=== PATIENT | male | born 1995 | race Caucasian/White ===

== ENCOUNTER 2019-04-26 18:12 | Day surgery (SDC) | payer MEDICAID, SELFPAY ==
[2019-04-26] VITALS (8 sets, daily range): BP systolic 114–158; BP diastolic 66–94; PULSE 78–106; RESP 16–20; TEMP 36.6–37.4; O2SAT 95–100; BMI 46.6
--- NOTE | 2019-04-26 18:46 | XR_ITS ---
WS: [id number] XR pelvis 1-2V* 90229 REASON FOR EXAM: fb in penis ? FINDINGS: The foreign body deformities in the region of the penis seen on February 20, 2018 were not observed today. The ilium, ischium, and pubis were normal. The hip joints were normal. XR/XR pelvis 1-2V* [id number] IMPRESSION: A definite foreign body is not noted today. The pelvis appear to be essentially normal.
--- NOTE | 2019-04-26 19:16 | ED_ITS ---
HPI - Skin/Abscess/Foreign Bdy General: Chief complaint: Skin/Abscess/Foreign Body Stated complaint: FB in penis Time Seen by Provider: 04/26/19 19:01 History of Present Illness: HPI narrative: Patient last night put something up inside his penis. Said it was then orange. Says that it is still in there he is able to urinate some around. Not have any pain. Patient has urinated a few times since without any difficulty. Patient with history of autism MD complaint: other (Foreign body possibly in penis) Onset (ago): day(s) (1) Associated symptoms: Deny chills or fever(s) Review of Systems Const: Denies: fever or chills : Reports: other (Possible foreign body in the urethra patient is able to urinate) PFSH ED PFSH: Social History Smoking and tobacco status: never smoked Physical Exam Const: COMMON NORMALS: no apparent distress : PENIS: normal penis and other (No foreign body visible at the meatus. Did palpate the head of the penis and shaft I did not feel any foreign body. X-ray appears negative of the pelvis for foreign body.) Course Vital Signs: Vital signs: Vital Signs Temperature 98 F 04/26/19 18:39 Pulse Rate 96 04/26/19 19:13 Respiratory Rate 18 04/26/19 19:13 Blood Pressure 138/66 04/26/19 19:13 Pulse Oximetry 96 04/26/19 19:13 MDM - Skin/Abscess/Foreign Bdy MDM Narrative: Medical decision making narrative: Discussed case with Dr. Reaves. Had ultrasound done and showed an object 1/2 cm by half centimeter stuck at the distal portion of the urethra spoke with Dr. Samayoa concerning the patient and and asked for a bladder scan which showed 3 in her 75 mils I tried with alligator forceps to find the object was able to visualize any foreign body. Patient is able to urinate around the object some. Dr. Samayoa asked that the patient follow-up at 0 800 at his office Sunday morning. Patient unable to urinate al discharge from the ER and so spoke Dr. Samayoa said try 12-gauge catheter which I went and looked back his meatus could visualize a small rubber object in there and and was able to to grab the object with forcep of the catheter and got about 10 mils of urine out and patient is still not able to urinate Discharge Plan Discharge Patient Disposition: Home, Self-Care Clinical Impression: Foreign body in penis Qualifiers: Encounter type: initial encounter Qualified Code(s): T19.4XXA - Foreign body in penis, initial encounter Condition: Stable Prescriptions: No Action No Known Home Medications RF: 0 Discharge Orders: Discharge Order (Routine); Ordered 04/26/19 Ordered By: Kenan Hardwick Referrals: Luis Solares, [facility] [Primary Care Provider] - Discharge Diet: Usual diet Discharge Activity: Resume usual activity Activity Restrictions/Additional Instructions: Do not place anything inside the penis. Follow-up with Dr. Samayoa with urologist at next available appointment at 0 800 at his office on Sunday morning.. If any problems develop over the next 1 to 3 days return here to the ER or if unable to urinate return here to the ER. Sign Out Sign Out Data: Patient Sign Out occurred on 04/26/19 at 21:08. Patient's care was discussed, and care was transferred from to January Gonzalez. Coding Level of Care Code ED Hand Bunch Maker for Denzel Blanton Exam Expanded Problem Focused
--- NOTE | 2019-04-26 19:26 | PC.NURSE ---
Introduced self to patient and initiated vital signs. Patient presents A&O x 4. NAD, ABCs intact, MAEW and agreeable to treatment. Respirations are even and unlabored. Pt states medications taken before coming to ER are n/a. Pt states that the chief complaint for the ER visit today is due to placing a foreign object into his penis. Pt states that he placed a little plastic cap into his penis. Pt denies any vision disturbances or lightheadedness. Bed left in lowest position in semi-fowlers with side rails up.Reassured patient of needs and will continue to monitor.
--- NOTE | 2019-04-26 20:04 | US_ITS ---
WS: [id number] US soft tissue/extremity [id number] REASON FOR EXAM: fb possibly in penis FINDINGS: A foreign body appears to be evident in the distal penis. This lesion measured 1.37 x 0.68 cm. It has the appearance of a plastic cup. US/US soft tissue/extremity [id number] IMPRESSION: A foreign body is seen in the distal penis.
--- NOTE | 2019-04-26 20:04 | PC.NURSE ---
Pt states that he was trying to urinate, but his flow stopped midflow and became very painful. Provider notified.
--- NOTE | 2019-04-26 22:34 | PM.OPSURHP ---
Providers/Chief Complaint Admitting Physician: Danita Primary Care Provider: CARLOS Ennis Chief Complaint: obj stuck in penis History of Present Illness Isiah Celaya is a 24 year old male with a history of instrumentation of the urethra. In 2018 it was required to go to the operating room for an extensive endoscopic procedure to remove a foreign body from his urethra/bladder. He presented tonight with another foreign body that he placed in the urethra. He did this apparently last night. He was voiding well and voided even upon emergency room evaluation time frame. Attempts at removal of the foreign body were unsuccessful in the emergency department. He started having more difficulty voiding. His bladder was distended on ultrasound and it was recommended that he go to the operating room emergently for cystoscopy and foreign body removal. Possible open foreign body removal of the bladder. Reviewed with patient and father. Discussed possible open surgery if can't get out endoscopically. Past medical history includes Asperger's syndrome, history of foreign body inserted into urethra on multiple occasions 1 requiring extensive endoscopic procedure to remove Other illnesses include morbid obesity No known family history of concern No substance abuse Review of Systems Const: Denies: fever or chills Eyes: Denies: change in vision Card: Denies: chest pain or palpitations Resp: Denies: shortness of breath or productive cough GI: Denies: abdominal pain, nausea or vomiting : Reports: difficulty urinating; Denies: flank pain Skin/Breast: Denies: rash Neuro: Denies: headache or changes in sensation Psych: Reports: other (Autism) Endo: Denies: excessive thirst Pratik/Lymph: Denies: easy bruising or easy bleeding All/Imm: Denies: hives or throat swelling Medications/Allergies Home Medications Medication Instructions Recorded Confirmed Last Taken Type No Known Home Medications 04/26/19 04/26/19 Unknown History Allergies Allergy/AdvReac Type Severity Reaction Status Date / Time No Known Allergies Allergy Verified 04/26/19 18:43 PFSH PFSH: Medical History Asperger syndrome Foreign body in penis Morbid obesity Surgical History Status post cystoscopy With foreign body removal Social History Smoking and tobacco status: never smoked Vital Signs Vitals Signs: Last Vital Signs Temp 98 F 04/26/19 18:39 Pulse 96 04/26/19 19:13 Resp 18 04/26/19 19:13 BP 138/66 04/26/19 19:13 Pulse Ox 96 04/26/19 19:13 Weight: Weight last 48 hrs Weight 325 lb Physical Exam Const: COMMON NORMALS: no apparent distress, alert and well nourished GENERAL APPEARANCE: well kempt and well developed NUTRITIONAL APPEARANCE: obese ORIENTATION/CONSCIOUSNESS: not confused HENMT: COMMON NORMALS: normocephalic and head/scalp atraumatic HEAD & SCALP: normocephalic and atraumatic Eye: COMMON NORMALS: conjunctivae normal and no scleral icterus CONJUNCTIVA: Yes conjunctivae normal Neck/C-Spine: COMMON NORMALS: full ROM GENERAL: Yes normal visual inspection Resp: COMMON NORMALS: normal respiratory effort EFFORT & INSPECTION: No labored and No actively coughing Cardio: COMMON NORMALS: regular rate and regular rhythm GI: COMMON NORMALS: soft to palpation, non-tender and no masses INSPECTION: Yes pannus present : COMMON NORMALS: Yes external exam normal, Yes testes normal and Yes scrotum normal MALE GROIN/PERINEUM EXAM: No ecchymosis PENIS: normal penis and circumcised MEATUS: meatus normal, no meatla discharge and No blood at meatus SCROTUM: No erythematous, No ecchymosis, No scrotal swelling and No scrotal mass TESTES: Yes testicular lie normal, No enlarged testicle(s) and No testicular swelling Extremity: COMMON NORMALS: no clubbing, cyanosis or edema OTHER: Normal Gait Neuro: COMMON NORMALS: no focal motor deficits SENSORIUM/ORIENTATION: Yes alert Psych: COMMON NORMALS: mental status grossly normal APPEARANCE: Yes grossly normal and Yes well kempt ATTITUDE: Yes calm and Yes engaged Skin: COMMON NORMALS: no rashes or lesions noted and no jaundice GENERAL SKIN EXAM: no rashes or lesions noted A&P Assessment and plan (1) Foreign body in penis: Status: Acute Qualifiers: Encounter type: initial encounter Qualified Code(s): T19.4XXA - Foreign body in penis, initial encounter Code(s): T19.4XXA - Foreign body in penis, initial encounter (2) Asperger syndrome: Status: Acute Code(s): F84.5 - Asperger's syndrome Coding Level of Care Code Acute Cna Per Diem for [facility] Fwd Exam Detailed Diagnoses Foreign body in penis T19.4XXA Encounter type: initial encounter Asperger syndrome F84.5
--- NOTE | 2019-04-26 22:48 | P.ANESASSM_ITS ---
Pre-Anesthetic Assessment Pre-Anesthetic Assessment: Height/Weight: Height 1.78 m Weight 147.418 kg Temp Pulse Resp BP Pulse Ox 98 F 96 18 138/66 96 04/26/19 18:39 04/26/19 19:13 04/26/19 19:13 04/26/19 19:13 04/26/19 19:13 Social: Social History: No alcohol and No tobacco Exam: Pre-Anes Outpt Exam: alert, oriented x 3, clear to auscultation bilater ally and regular rate & rhythm Airway: Submandibular: WNL Cervical ROM: WNL MP: 2 Dentition: Other (teeth ok) History/ROS: No significant history except as noted Pulmonary: Pulmonary: None reported CV/HEM: CV/HEM: None reported : : None reported Comments: FB in penis Hepatic: Hepatic: None reported GI: GI: None reported Metabolic: Metabolic: Morbid obesity Musc/skel: Musc/skel: None reported Neuropsych: Comments: asperger synd Anesthetic Plan: ASA status: 2E Anesthesia: Anesthesia Evaluation and General Risk of > 500 ml blood loss (7ml/kg in children): No PFSH Anesthesia PFSH: Medical History Asperger syndrome Foreign body in penis Morbid obesity Surgical History Status post cystoscopy With foreign body removal Social History Smoking and tobacco status: never smoked Data Anesthesia Cardiac Studies: No Data to Display
[2019-04-26] MEDS: lidocaine 2% Urojet 20 mL TOPICAL (23:30)
--- NOTE | 2019-04-26 23:35 | PM.OP ---
Operative Report Date of procedure: April 26, 2019 Pre-op Diagnosis: Foreign body urethra Post-op diagnosis: same Post-op Findings: Some sort of plastic read Approximately a centimeter and 1/2 to 2 cm in the distal urethra from the meatus Pathology: The cath was sent for documentation purposes to pathology. Surgeon: Danita Anesthesia: General Estimated blood loss: None Complications: None Findings: Identified in the distal urethra. Withdrawn with assistance of hemostats Condition: stable Disposition: PACU Brief History: Grabiel is a 24-year-old white male with Asperger's syndrome who has a history of instrumentation of his urethra and placement of articles over the penis. Has had at least 1-2 other surgeries in the past for removal of these. He presented to the emergency department about 24 hours after passing something into the urethra. Initially was voiding fine but later complained of not being able to void. The foreign body was palpable in the area of the fossa navicularis. Admitted for emergent trip to the operating room for removal Procedure: After emergent preoperative evaluation examination and obtaining of informed consent he was taken to the operating suite on 04/26/2019 where general anesthesia was administered without difficulty after appropriate timeout was performed, SCDs confirmed to be functioning, preoperative antibiotics administered, beta-eugenie protocol confirmed. Prepped and draped in usual sterile fashion in dorsolithotomy position pain careful attention to voiding pressure points. 2% lidocaine jelly was inserted into the urethra for lubrication purposes. The 21 Japanese cystoscope with 30 degree lens was introduced into the urethral meatus and advanced about a centimeter and 1/2 to 2 cm where the foreign body was encountered. It was a soft rubber Of some sorts and it was felt that the most expeditious removal and effective removal strategy would be securing and hemostats and withdrawing. The edge of the foreign body was secured with a hemostat and with light pressure was able to be withdrawn from the distal urethra. Scope was then passed back into the urethra for inspection of the urethra which was intact without significant injury or trauma. There was no bleeding or tear. The remaining portion of the urethra and bladder were normal. It was decided to not leave a catheter due to the excellent status of the urethra. The bladder was drained and the procedure completed. Tolerated the procedure well without complications and was awakened in the operating room and returned to the recovery in stable condition with anticipation of discharge. The patient was aggressively counseled preoperatively regarding the inappropriateness of this activity and the risks associated with it moving forward if he continues to do it. His father stated that he would be actively involved and trying to facilitate help for the patient.
--- NOTE | 2019-04-26 23:36 | PC.NURSE ---
Patient wheeled to OR via stretcher accompanied by surgery team at [id number]
--- NOTE | 2019-04-26 23:53 | ANE.PACU2 ---
 Inpatient post-anesthesia follow up: Airway intact: Yes Vital signs: Temperature 99.2 F Pulse Rate [Left R adial] 94 Pulse Rate 86 Respiratory Rate 18 Blood Pressure [Le ft Arm] 128/83 Blood Pressure 158/94 Pulse Oximetry 95 Oxygen Delivery Me thod Room Air Oxygen Flow Rate 8 Fraction of Inspir ed Oxygen Hydration adequate: Yes Nausea and vomiting: No Pain level: Other Pain level: 0/10 Mental status: Baseline
[2019-04-27 00:21] VITALS: BP 140/90; PULSE 88; RESP 18; TEMP 37.4; O2SAT 98
== END 2019-04-26 22:50 | disposition home or self-care (01) ==
LOC: ER 21:36 → OR 22:51
PROVIDERS: Emergency Provider Nurse Practitioner Family; Family Provider Nurse Practitioner; PCP Nurse Practitioner; Visit Provider Urology
PROC: (CPT 52310; principal; 2019-04-26 11:00)
DX: T19.0XXA Foreign body in urethra, initial encounter (principal); F84.5 Asperger's syndrome; E66.01 Morbid (severe) obesity due to excess calories; Z68.42 Body mass index [BMI] 45.0-49.9, adult
CPT/HCPCS: 52310; 12345; 72170; 76882; 88300; 99283; J0330; J0690; J2001; J2704; J2710; J3010; J3490

== ENCOUNTER → 2019-05-01 14:09 | Outpatient (BNVA) | payer MEDICAID, SELFPAY | PROVIDERS: Family Provider Nurse Practitioner; PCP Nurse Practitioner; Visit Provider Nurse Practitioner | DX: K76.0 Fatty (change of) liver, not elsewhere classified (principal) | CPT/HCPCS: 80053; 80061; 85025 ==